=== PATIENT | male | born 1945 | race Caucasian/White ===

== ENCOUNTER → 2018-03-04 | Outpatient (CLI) | payer OTHER ==
[~2018-03-04] MED LIST: CHOLTAB3 PO; CLBCR15 EXT; CYAN250T PO; FLV1 PO; GLC500 PO; MCR25 PO; OXYC1TAB3 PO; PRN10125 PO; UREA 40% EXT; ZFRODT4 SL
--- NOTE | 2018-03-04 09:52 | DIAGNOSTIC IMAGING REPORT ---
MRI THE RIGHT KNEE NO CONTRAST CLINICAL HISTORY: Right knee pain status post trauma COMPARISON STUDY: Outside conventional radiographic study dated February 15, 2018 FINDINGS: Imaging was performed in the axial, sagittal, and coronal planes. There is a suprapatellar joint effusion. The patellofemoral ligaments appear intact. The quadriceps and patellar tendons appear intact. The anterior and posterior cruciate ligaments appear intact. The lateral meniscus appears normal. There is mild medial extrusion of the medial meniscus. There is extensive mixed linear and globular signal change within the medial meniscus. There is a medial meniscal root tear. There is severe chondrosis involving the medial joint compartment with subchondral marrow edema involving the medial femoral condyle and medial tibial plateau IMPRESSION: 1. Medial meniscal root tear 2. 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 Suprapatellar joint effusion Electronically signed by: Jeffrey Castle M.D. 03/04/2018 9:51 AM Dictated Date/Time: 03/04/2018 9:47 AM
== END | disposition home or self-care (01) ==
LOC: C.MRIBC 08:43
PROVIDERS: ATTEND Orthopaedic Surgery
DX: S83.241A Other tear of medial meniscus, current injury, right knee, initial encounter (principal); M25.461 Effusion, right knee; X58.XXXA Exposure to other specified factors, initial encounter; M25.861 Other specified joint disorders, right knee

== ENCOUNTER → 2018-03-04 | Outpatient (CLI) | payer OTHER | END | disposition home or self-care (01) | LOC: C.LABBC 10:24 | PROVIDERS: ATTEND Orthopaedic Surgery | DX: M25.561 Pain in right knee (principal); M25.461 Effusion, right knee ==

== ENCOUNTER → 2018-04-06 | Outpatient (CLI) | payer OTHER ==
[2018-04-06 13:29] LABS: BASO % 0.7 %; BASO ABS # 0.04 K/uL (0-0.2); EOS % 2.8 %; EOS ABS # 0.16 K/uL (0-0.5); HEMATOCRIT 29.6 % (42-52); HEMOGLOBIN 9.7 g/dL (14.0-18.0); IG# 0.07 K/uL (0.00-0.02); LYMPH % 23.9 %; LYMPH ABS # 1.37 K/uL (1.2-3.4); MEAN CELL VOLUME 64.5 fL (80-100); MEAN CORPUSCULAR HEMOGLOBIN 21.1 pg (25-34); MEAN CORPUSCULAR HGB CONC 32.8 g/dl (32-36); MEAN PLATELET VOLUME 10.2 fL (7.4-10.4); MONO % 6.4 %; MONO ABS # 0.37 K/uL (0.11-0.59); NEUT ABS # 3.73 K/uL (1.4-6.5); NUCLEATED RED BLOOD CELL ABS 0.02 K/uL (0-0); PLATELET COUNT 204 K/uL (130-400); RED CELL DISTRIBUTION WIDTH CV 17.2 % (11.5-14.5); RED CELL DISTRIBUTION WIDTH SD 38.6 fL (36.4-46.3); WHITE BLOOD COUNT 5.74 K/uL (4.8-10.8)
== END | disposition home or self-care (01) ==
LOC: C.LABBC 11:26
PROVIDERS: ATTEND Orthopaedic Surgery
DX: M25.462 Effusion, left knee (principal); M25.562 Pain in left knee